=== PATIENT | female | born 1945 | race Caucasian/White ===

== ENCOUNTER 2020-07-13 17:12 | Emergency (ER) | payer MEDICARE ==
[2020-07-13 17:25] VITALS: BP 136/70; PULSE 76
[2020-07-13] MEDS: Take Home: Cyclobenzaprine 10 MG Tab, 4 Tab Pack PO ONE (17:47)
[2020-07-13] MEDS: Take Home: Naproxen 500 MG Tab, 4 Tab Pack PO ONE (17:47)
--- NOTE | 2020-07-13 21:17 | EDM.PDOC ---
ED HPI GENERAL MEDICAL PROBLEM - General Chief Complaint: Neck Problem Stated Complaint: NECK PAIN/DIZZY Time Seen by Provider: 07/13/20 17:18 Source of Information: Reports: Patient History Limitations: Reports: No Limitations - History of Present Illness INITIAL COMMENTS - FREE TEXT/NARRATIVE: Pt. presents to ER with complaints of R lateral neck pain. Pt. states that the discomfort started this AM. Denies any trauma to the area. No fever or chills. States that her ROM is limited due to increased discomfort with movement of the head/neck. Pt. denies any chest pain or shortness of breath. No nausea, vomiting, diarrhea. No numbness/tingling in extremities. Onset: Today Onset Date: 07/13/20 Location: Reports: Neck Right Neck Pain Score (Numeric/FACES): 5 - Related Data Allergies Allergy/AdvReac Type Severity Reaction Status Date / Time levofloxacin [From Levaquin] Allergy Diarrhea Verified 07/13/20 17:28 DUST MITES Allergy Cannot Uncoded 07/13/20 17:28 Remember MOLD EXTRACT Allergy Cannot Uncoded 07/13/20 17:28 Remember [place] Allergy Cannot Uncoded 07/13/20 17:28 Remember PET DANDER Allergy Cannot Uncoded 07/13/20 17:28 Remember Home Meds: Home Meds Calcium Carbonate/Vitamin D3 [Calcium 600 + Vit D Tablet] 1 each PO DAILY 06/24/13 [History] Multivitamin [Multi Vitamin Daily] 1 each PO DAILY 06/24/13 [History] atorvaSTATin Calcium [Atorvastatin Calcium] 10 mg PO DAILY 07/13/20 [History] hydroCHLOROthiazide [Hydrochlorothiazide] 12.5 mg PO DAILY 07/13/20 [History] Past Medical History Cardiovascular History: Reports: High Cholesterol, Hypertension Respiratory History: Reports: Pneumonia, Recurrent Social & Family History - Tobacco Use Tobacco Use Status *Q: Never Tobacco User ED ROS GENERAL - Review of Systems Review Of Systems: See Below Constitutional: Reports: No Symptoms HEENT: Reports: No Symptoms Respiratory: Reports: No Symptoms Cardiovascular: Reports: No Symptoms Endocrine: Reports: No Symptoms GI/Abdominal: Reports: No Symptoms : Reports: No Symptoms Musculoskeletal: Reports: No Symptoms Skin: Reports: No Symptoms Neurological: Reports: No Symptoms Psychiatric: Reports: No Symptoms Hematologic/Lymphatic: Reports: No Symptoms Immunologic: Reports: No Symptoms ED EXAM, GENERAL - Physical Exam Exam: See Below Exam Limited By: No Limitations General Appearance: Alert, WD/WN, No Apparent Distress Ears: Normal External Exam, Normal Canal, Hearing Grossly Normal, Normal TMs Ear Exam: Bilateral Ear: Auricle Normal, Canal Normal, TM normal Head: Atraumatic, Normocephalic Neck: Tender Lateral, Other (muscle spasm R lateral cervical muscles. ROM decreased. Increased pain with movement/palpation.) Course - Vital Signs Last Recorded V/S: Last Vital Signs Temp 36.6 C 07/13/20 17:18 Pulse 76 07/13/20 17:18 Resp 18 07/13/20 17:18 BP 136/70 07/13/20 17:18 Pulse Ox 99 07/13/20 17:18 - Orders/Labs/Meds Meds: Medications Discontinued Medications Generic Name Dose Route Start Last Admin Trade Name Teri PRN Reason Stop Dose Admin Cyclobenzaprine HCl 1 packet 07/13/20 17:30 07/13/20 17:47 Take Home: Cyclobenzaprine 10 Mg, 4 Tab Pack PO 07/13/20 17:31 1 packet ONETIME ONE Administration Naproxen 1 packet 07/13/20 17:30 07/13/20 17:47 Take Home: Naproxen 500 Mg, 4 Tab Pack PO 07/13/20 17:31 1 packet ONETIME ONE Administration Departure - Departure Time of Disposition: 18:00 Disposition: Home, Self-Care 01 Clinical Impression: Torticollis, acute - Discharge Information Instructions: Cyclobenzaprine tablets, Naproxen and naproxen sodium oral immediate-release tablets, Acute Torticollis, Adult Referrals: Karen Delcid, [Primary Care Provider] - Forms: ED Department Discharge Additional Instructions: Cyclobenzaprine 10mg 1 three times daily for muscle spasm Naproxen 500mg 1 twice daily as needed for pain. Do not take ibuprofen if you are taking the naproxen. Use heating pack on area. Work on moving your head to stretch the muscle. Massage can also help. Follow-up with Dr. Delcid if not gradually improving. Sepsis Event Note (ED) - Evaluation Sepsis Screening Result: No Definite Risk - Focused Exam Vital Signs: Vital Signs Temp Pulse Resp BP Pulse Ox 07/13/20 17:18 36.6 C 76 18 136/70 99 - Problem List Review Problem List Initiated/Reviewed/Updated: Yes - Assessment/Plan Plan: Cyclobenzaprine 10mg 1 three times daily for muscle spasm Naproxen 500mg 1 twice daily as needed for pain. Do not take ibuprofen if you are taking the naproxen. Use heating pack on area. Work on moving your head to stretch the muscle. Massage can also help. Follow-up with Dr. Delcid if not gradually improving.
== END 2020-07-13 17:49 | disposition home or self-care (01) ==
LOC: VM.ED 17:12
DX: M43.6 Torticollis (principal); I10 Essential (primary) hypertension; E78.00 Pure hypercholesterolemia, unspecified; Z79.899 Other long term (current) drug therapy; Z91.048 Other nonmedicinal substance allergy status; Z88.1 Allergy status to other antibiotic agents
CPT/HCPCS: 99283; A9270-GY

== ENCOUNTER 2021-06-06 07:53 | Day surgery (SDC) | payer MEDICARE ==
[~2021-06-06 07:53] MED LIST: Lactated Ringers 1,000 ML IV SCH
[2021-06-06] MEDS ORDERED: Propofol 200 MG/20 ML SDV ONE (09:05)
[2021-06-06] MEDS ORDERED: fentaNYL 100 MCG/2 ML SDV ONE (09:05)
[2021-06-06 10:56] VITALS: BP 140/69; PULSE 67
[2021-07-04] MEDS ORDERED: Lactated Ringers 1,000 ML IV SCH (07:00)
== END 2021-06-06 12:15 | disposition home or self-care (01) ==
LOC: VM.SDS 07:53
PROVIDERS: ATTEND Student in an Organized Health Care Education/Training Program
DX: Z12.11 Encounter for screening for malignant neoplasm of colon (principal); K63.5 Polyp of colon; K62.1 Rectal polyp; K21.9 Gastro-esophageal reflux disease without esophagitis; I10 Essential (primary) hypertension; J45.30 Mild persistent asthma, uncomplicated; E66.9 Obesity, unspecified; Z98.890 Other specified postprocedural states; Z79.899 Other long term (current) drug therapy; Z88.8 Allergy status to other drugs, medicaments and biological substances
CPT/HCPCS: 00812; 45380; J2704; J3010; J7120; 88305